=== PATIENT | female | born 2000 | race Caucasian/White ===

== ENCOUNTER 2018-08-25 10:19 | Emergency (ER) | payer BC ==
[~2018-08-25] VITALS: Ht 162.6 cm; Wt 60.9 kg
[~2018-08-25 10:19] MED LIST: AMOXICILLI250 MG/51 PO; SINGULAIR 5M5 MG/TAB PO; VENTOLIN0.09 MG IH; ZYRTEC5 M1 PO
[2018-08-25 10:23] VITALS: TEMP 97.1
[2018-08-25 11:55] LABS: BASO # 0.1 (0.0-0.2); BASO % 0.8 % (0.0-2.0); EOS # 0.2 (0.0-0.7); EOS % 2.4 % (0-4.0); GRAN # 4.8 (1.4-6.5); GRAN % 64.8 % (42.2-75.2); HEMATOCRIT 40.1 % (35.0-45.0); HEMOGLOBIN 12.8 g/dl (12.0-15.0); LYMPH # 1.9 (1.2-3.4); LYMPH % 25.2 % (20.0-51.0); MEAN CELL VOLUME 85 fl (80.0-95.0); MEAN CORPUSCULAR HEMOGLOBIN 27 pg (26.0-32.0); MEAN CORPUSCULAR HGB CONC 32 g/dl (33.0-37.0); MEAN PLATELET VOLUME 9.6 fl (7.4-10.4); MONO # 0.5 (0.1-0.6); MONO % 6.7 % (1.7-9.3); PLATELET COUNT 322 K/mm3 (130-400); RED BLOOD COUNT 4.74 M/mm3 (4.10-5.30); REDCELL DISTRIBUTION WIDTH-CV 14.3 % (11.5-14.5)
[2018-08-25 12:07] LABS: ALANINE AMINOTRANSFERASE 29 U/L (9-52); ALBUMIN 4.6 gm/dL (3.5-5.0); ALKALINE PHOSPHATASE 47 U/L (50-136); ANION GAP 8 mmol/L (7-16); AST,SGOT 35 U/L (15-37); BILIRUBIN,TOTAL 1.7 mg/dL (0.0-1.0); BLOOD UREA NITROGEN 14 mg/dL (7-17); CALCIUM 9.7 mg/dL (8.4-10.2); CARBON DIOXIDE 27 mmol/L (22-30); CHLORIDE 108 mmol/L (98-107); CREATININE, serum 0.74 mg/dL (0.52-1.25); GLUCOSE 109 mg/dL (74-106); POTASSIUM 3.9 mmol/L (3.4-5.0); SODIUM 142 mmol/L (137-145)
[2018-08-25 12:23] LABS: TROPONIN-I < 0.012 ng/mL (0.000-0.034)
[2018-08-25 12:37] VITALS: BP 129/86; PULSE 68
== END 2018-08-25 12:37 | disposition home or self-care (01) ==
LOC: COL.ER 10:19
PROVIDERS: Emergency Medicine
DX: R07.89 Other chest pain (principal)

== ENCOUNTER → 2019-08-05 | Outpatient (CLI) | payer BC | LOC: COL.RAD 15:29 | DX: H53.8 Other visual disturbances (principal); R51 Headache; R20.0 Anesthesia of skin ==

== ENCOUNTER → 2019-08-17 | Outpatient (CLI) | payer BC | LOC: COL.RAD 10:17 | DX: G93.9 Disorder of brain, unspecified (principal) | CPT/HCPCS: A9585 ==

== ENCOUNTER → 2020-01-05 | Outpatient (CLI) | payer BC | LOC: COL.RAD 11:02 | DX: N83.201 Unspecified ovarian cyst, right side (principal) ==

== ENCOUNTER → 2020-02-21 | Outpatient (CLI) | payer BC | LOC: COL.RAD 12:00 | DX: N83.201 Unspecified ovarian cyst, right side (principal) ==

== ENCOUNTER 2022-12-11 09:43 | Emergency (ER) | payer BC ==
[~2022-12-11] VITALS: Ht 160 cm; Wt 65.9 kg
[2022-12-11 09:58] VITALS: TEMP 97.4
[2022-12-11 10:18] LABS: COLLECTION METHOD CLEAN CATCH
[2022-12-11 10:33] LABS: SQUAMOUS EPITHELIAL 0-2 /hpf (0-10); URINE BACTERIA Rare /hpf (NONE SEEN); URINE RBC None Seen /hpf (0-2)
[2022-12-11 10:34] LABS: PH 6.5 (5.0-8.5); URINE APPEARANCE Clear (CLEAR/HAZY); URINE BLOOD Negative (NEGATIVE); URINE COLOR Yellow (YELLOW); URINE GLUCOSE Negative (NEGATIVE); URINE KETONE Negative (NEGATIVE); URINE NITRATE Negative (NEGATIVE); URINE PROTEIN(semi-quant) Negative (NEGATIVE); URINE UROBILINOGEN 0.2 E.U/dL (0.2-1.0)
[2022-12-11 10:36] LABS: BASO # 0.1 K/mm3 (0.0-0.2); BASO % 0.5 % (0.0-2.0); EOS # 0.3 K/mm3 (0.0-0.7); EOS % 2.2 % (0.0-4.0); GRAN # 10.3 K/mm3 (1.4-6.5); GRAN % 78.3 % (42.2-75.2); HEMATOCRIT 39.5 % (37.0-47.0); HEMOGLOBIN 13.4 g/dl (12.5-16.0); LYMPH # 1.7 K/mm3 (1.2-3.4); LYMPH % 12.8 % (20.0-51.0); MEAN CELL VOLUME 90 fl (80.0-100.0); MEAN CORPUSCULAR HEMOGLOBIN 30 pg (27-31); MEAN CORPUSCULAR HGB CONC 34 g/dl (33.0-37.0); MONO # 0.8 K/mm3 (0.1-0.6); MONO % 5.7 % (1.7-9.3); PLATELET COUNT 260 K/mm3 (130-400); RED BLOOD COUNT 4.41 M/mm3 (4.10-5.30); REDCELL DISTRIBUTION WIDTH-CV 12.3 % (11.5-14.5)
[2022-12-11 10:53] LABS: ALBUMIN 3.4 gm/dL (3.5-5.0); BILIRUBIN,TOTAL 0.8 mg/dL (0.2-1.2); CALCIUM 9.4 mg/dL (8.4-10.2); CREATININE, serum 0.69 mg/dL (0.57-1.11); POTASSIUM 3.9 mmol/L (3.5-4.5); TOTAL PROTEIN 7.2 gm/dL (6.2-8.1)
[2022-12-11 12:25] VITALS: BP 123/81; PULSE 73
== END 2022-12-11 12:29 | disposition home or self-care (01) ==
LOC: COL.ER 09:43
PROVIDERS: Family Medicine; Physician Assistant
DX: O26.892 Other specified pregnancy related conditions, second trimester (principal); R10.9 Unspecified abdominal pain; Z3A.18 18 weeks gestation of pregnancy

== ENCOUNTER → 2023-07-30 | Outpatient (CLI) | payer BC ==
[~2023-07-30] MED LIST changes: +MOTRIN 800800 MG/TAB PO; +PERCOCET 325 MG1 TA2 PO; +SINGULAIR 110 MG/TAB PO; -SINGULAIR 5M5 MG/TAB PO; +ZYRTEC 10MG10 MG PO; -ZYRTEC5 M1 PO
== END ==
LOC: COL.RAD 12:50
DX: R20.0 Anesthesia of skin (principal)

== ENCOUNTER → 2023-08-17 | Outpatient (CLI) | payer BC | LOC: COL.RAD 07-31 12:30 | DX: R20.0 Anesthesia of skin (principal) | CPT/HCPCS: A9575 ==